=== PATIENT | male | born 1995 | race Caucasian/White ===

== ENCOUNTER 2021-05-23 02:23 | Emergency (ER) | payer SELFPAY ==
[~2021-05-23] VITALS: Ht 177.8 cm; Wt 77.1 kg
[2021-05-23 02:34] VITALS: BP 126/58
--- NOTE | 2021-05-23 02:39 | NUR ---
PT LEFT ROOM AND WENT OUTSIDE.
--- NOTE | 2021-05-23 03:08 | NUR ---
PT NOT IN ROOM, LEFT WITHOUT BEING SEEN.
== END 2021-05-23 03:09 | disposition left against medical advice (07) ==
LOC: ER 02:35
DX: Z53.21 Procedure and treatment not carried out due to patient leaving prior to being seen by health care provider (principal); F10.129 Alcohol abuse with intoxication, unspecified; R11.2 Nausea with vomiting, unspecified; Y90.9 Presence of alcohol in blood, level not specified